=== PATIENT | female | born 1990 | race African-American/Black ===

== ENCOUNTER 2019-05-08 16:25 | Emergency (ER) | payer OTHER ==
[~2019-05-08] VITALS: Ht 157.5 cm; Wt 106.1 kg
[~2019-05-08 16:25] MED LIST: AMOX1TAB61 PO
[2019-05-08 16:40] VITALS: BP 150/72
--- NOTE | 2019-05-08 18:26 | PHYS DOC ---
Past Medical History Past Medical History: No Pertinent History (JOVANA MOREL APRN) Past Surgical History: (JOVANA MOREL APRN) Alcohol Use: Occasionally Drug Use: None (JOVANA MOREL APRN) Adult General Chief Complaint Chief Complaint: SEXUALLY TRANSMITTED DISEASE HPI HPI Patient is a 28 year old female] who presents with [exposure to chlamydia. Patient reports her sexual partner was just diagnosed with chlamydia for the past couple days. Reports he had been having some symptoms for the past 2 days as well. Reports he has been treated, she has not. Reports she has previously had an STD, presents with 6 years ago, the states she has noticed a little bit of discharge but has had no discomfort.] (JOVANA MOREL APRN) Review of Systems Review of Systems Constitutional: Denies fever or chills [] Cardiovascular: No additional information not addressed in HPI [] GI: Denies abdominal pain, nausea, vomiting, bloody stools or diarrhea [] : Denies dysuria or hematuria, does report a small amount of vaginal discharge today [] Musculoskeletal: Denies back pain or joint pain [] Integument: Denies rash or skin lesions [] All other systems were reviewed and found to be within normal limits, except as documented in this note. (JOVANA MOREL APRN) Current Medications Current Medications Current Medications Medications (Trade) Dose Ordered Sig/Quentin Start Time Stop Time Status Last Admin Dose Admin Azithromycin (Zithromax) 1,000 mg 1X ONCE 05/08/19 18:30 05/08/19 18:53 DC 05/08/19 18:51 1,000 MG Ceftriaxone Sodium (Rocephin Im) 1 gm 1X ONCE 05/08/19 18:30 05/08/19 18:54 DC 05/08/19 18:51 1 GM Ceftriaxone Sodium (Rocephin) 1 gm STK-MED ONCE 05/08/19 18:44 05/08/19 18:45 DC (JOVAN GARCIA DO) Allergies Allergies Allergies Coded Allergies Type Severity Reaction Last Updated Verified No Known Drug Allergies 04/07/19 No (JOVAN GARCIA DO) Physical Exam Physical Exam Constitutional: Well developed, well nourished, no acute distress, non-toxic appearance. [] [] Cardiovascular:Heart rate regular rhythm, no murmur [] Lungs & Thorax: Bilateral breath sounds clear to auscultation [] Abdomen: Bowel sounds normal, soft, no tenderness, no masses, no pulsatile masses. [] Extremities: No tenderness, no cyanosis, no clubbing, ROM intact, no edema. [] Neurologic: Alert and oriented X 3, normal motor function, normal sensory function, no focal deficits noted. [] (JOVANA MOREL APRN) Current Patient Data Vital Signs Vital Signs Date Time Temp Pulse Resp B/P (MAP) Pulse Ox O2 Delivery O2 Flow Rate FiO2 05/08/19 16:40 98.6 74 15 150/72 (98) 99 Room Air 98.6 (JOVAN GARCIA DO) EKG EKG [] (JOVANA MOREL APRN) Radiology/Procedures Radiology/Procedures [] (JOVANA MOREL APRN) Course & Med Decision Making Course & Med Decision Making Pertinent Labs and Imaging studies reviewed. (See chart for details) [Discussed this intermittent up with patient, patient in agreement to have urine test here, will administer antibiotics here. Patient will follow-up with primary care provider or else to prevent Department for further concerns.. Discussed safer sexual practices the patient. Patient understands] (JOVANA MOREL APRN) Dragon Disclaimer Dragon Disclaimer This electronic medical record was generated, in whole or in part, using a voice recognition dictation system. (JOVANA MOREL APRN) Departure Departure Impression: Primary Impression: Exposure to sexually transmitted disease (STD) Disposition: HOME, SELF-CARE Condition: GOOD Referrals: NO PCP (PCP) Patient Instructions: Chlamydia, Female, Sexually Transmitted Disease Additional Instructions: As we discussed, use safer sexual practices for the next week. Given the antibiotics a chance to work. Attending Signature Attending Signature I have reviewed the PA/FURNITURE SERVICER's note and plan of care. I was available for consultation as needed during the patient's visit in the emergency department. I agree with the clinical impression, plan, and disposition. (JOVAN GARCIA DO) JOVANA MOREL APRN May 08, 2019 18:26 JOVAN GARCIA DO May 09, 2019 08:15
[2019-05-08] MEDS ORDERED: AZITHROMYCIN 250 MG TABLET. PO ONE (18:30)
[2019-05-08] MEDS ORDERED: cefTRIAXone IM 1 GM VIAL IM ONE (18:30)
[2019-05-08] MEDS ORDERED: cefTRIAXone IV Push 1 GM VIAL. IVP ONE (18:44)
== END 2019-05-08 19:03 | disposition home or self-care (01) ==
LOC: ER 16:25
DX: Z20.2 Contact with and (suspected) exposure to infections with a predominantly sexual mode of transmission (principal)
CPT/HCPCS: 96372; 99283; J0696; Q0144

== ENCOUNTER 2020-08-14 22:44 | Emergency (ER) | payer OTHER | END 2020-08-14 23:28 | disposition left against medical advice (07) | LOC: ER 22:44 | DX: R06.02 Shortness of breath (principal); Z53.21 Procedure and treatment not carried out due to patient leaving prior to being seen by health care provider ==